=== PATIENT | male | born 1955 | race American Indian/Alaskan Native ===

== ENCOUNTER 2017-06-06 09:53 | Outpatient (CLI) | payer MEDICAID ==
--- NOTE | 2017-06-06 11:13 | Magnetic Resonance Report ---
MRI BRAIN WITHOUT CONTRAST INDICATION: Seizure. COMPARISON: 09/22/[address] FINDINGS: Noncontrast multiplanar and multisequence MRI of the brain again demonstrates age-appropriate, mildly enlarged ventricles and sulci. Mild ex-vacuo dilatation of the left temporal horn also again seen with mild adjacent old infarct/encephalomalacia as on axial images 11-12. No acute infarct, hemorrhage, mass effect or midline shift. No abnormal extra axial masses or fluid collections. Normal major intracranial vascular flow-voids. Normal posterior fossa with symmetric seventh and eighth nerve complexes. Preserved basilar cisterns. Normal eye globes. Slight bilateral ethmoid sinusitis. Clear remainder imaged paranasal sinuses and mastoid air cells. Partially empty sella. Normal remainder midline structures without evidence of Chiari malformation. Small susceptibility artifact in the right frontal scalp not excluded. 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 Please correlate. Thank you for the opportunity to participate in this patient's care.
== END 2017-06-06 09:54 | disposition home or self-care (01) ==
LOC: MRI 09:53
PROVIDERS: ATTEND Psychiatry & Neurology Neurology
DX: G40.309 Generalized idiopathic epilepsy and epileptic syndromes, not intractable, without status epilepticus (principal); J32.2 Chronic ethmoidal sinusitis
CPT/HCPCS: 70551